=== PATIENT | female | born 1945 | race Caucasian/White ===

== ENCOUNTER 2017-10-04 13:28 | Day surgery (SDC) | payer MEDICARE, OTHER ==
[~2017-10-04 13:28] MED LIST: ALPH200C4 PO; CALC1TAB12 PO; CHOL400D2 PO; MULT1TAB84 PO; NAPR220T95 PO; OXYC1CAP PO
[2017-10-04 13:54] VITALS: BP 154/98; PULSE 68; RESP 20; TEMP 98.4; O2SAT 94
--- NOTE | 2017-10-04 16:13 | RADRPT ---
EXAM DATE/TIME: 10/04/2017 00:00 [facility] COMPARISON : No previous studies available for comparison. INDICATIONS : FRACTURE/MASS OBJECTIVE: Temperature: 98.4 Heart Rate: 68 Blood Pressure: 154/98 Respiratory: 20 Oximetry: 94 PNEUMONIA VACCINE: HISTORY OF PRESENT ILLNESS: 72-year-old female with history of metastatic breast CA and newly diagnosed pathologic compression fr acture at T12 and L1. Patient reports increasing thoracolumbar junction pain approximately 4 weeks ag o following climbing a flight of stairs with 8/10 pain which has responded to ask related or chronic pain medication dosages. She now reports pain levels of 4/10 with scheduled pain medication. Denies any radiculopathy or new bowel/urinary incontinence. PAST MEDICAL HISTORY : 1. Carcinoma, breast. 2. Arthritis. PAST SURGICAL HISTORY : 1. Tonsilectomy 2. Port 3. Breast lumpectomy SOCIAL HISTORY : Social alcohol use. Tobacco; none. MEDICATIONS: 1. Oxycodone 10 mg q.i.d. PHYSICAL EXAMINATION: Back: Moderate tenderness on firm palpation of the T12 and L1 spinous processes. There is significantly inc reased STIR signal and enhancement at T12 with mild STIR signal and enhancement at L1. IMAGING STUDIES: MRI exam dated 09/29/2017 is reviewed. This demonstrates extensive bony metastatic disease with endpl ate compression fractures of T12 and L1 vertebral bodies. No significant retropulsed fragments or jenaro dence for tumor extension into the epidural space. ASSESSMENT: 72-year-old female with painful pathologic compression fractures at T12 and L1 now requiring escalate d dose scheduled narcotic medication for pain management. No evidence for epidural tumor extension or radiculopathy. She is in excellent candidate for RF ablation and cement augmentation at these levels . PLAN: RF ablation and kyphoplasty at T12 and L1. TIME SPENT: 20 minutes Ramu Alcantar MD on October 04, 2017 at 15:59 Board Certified Radiologist. This report was verified electronically.
[2017-10-06] MEDS ORDERED: CALC1TAB12 PO (10:56)
[2017-10-06] MEDS ORDERED: MULT1TAB46 PO (10:56)
[2017-10-06] MEDS ORDERED: TAMO10TA6 PO (10:56)
== END 2017-10-04 14:55 | disposition home or self-care (01) ==
LOC: HROP 13:28 → HRIP 13:31 → HROP 14:55
PROVIDERS: ATTEND Specialist
DX: M48.54XA Collapsed vertebra, not elsewhere classified, thoracic region, initial encounter for fracture (principal); M48.56XA Collapsed vertebra, not elsewhere classified, lumbar region, initial encounter for fracture; Z85.3 Personal history of malignant neoplasm of breast

== ENCOUNTER 2017-10-15 13:46 | Day surgery (SDC) | payer MEDICARE, OTHER ==
[~2017-10-15 13:46] MED LIST changes: -ALPH200C4 PO; +MULT1TAB46 PO; -MULT1TAB84 PO; -NAPR220T95 PO; +TAMO10TA6 PO
[2017-10-15 14:12] VITALS: BP 167/81; PULSE 62; RESP 20; TEMP 97.3; O2SAT 98
--- NOTE | 2017-10-15 16:43 | RADRPT ---
EXAM DATE/TIME: 10/15/2017 00:00 [facility] COMPARISON : INDICATIONS : Status post kyphoplasty and RF ablation at T12-L1. OBJECTIVE: Temperature: 97.3 Heart Rate: 62 Blood Pressure: 167/81 Respiratory: 18 Oximetry: 98 HISTORY OF PRESENT ILLNESS: 72-year-old female with history of metastatic breast CA and painful pathologic fractures at T12-L1 st atus post RF ablation and kyphoplasty. Patient is unfortunately a difficult historian and admits to b e improved pain. However, she reports persistent pain now primarily in the proximal lumbar region. PHYSICAL EXAMINATION: General: No acute distress Back: Mild tenderness on palpation of the proximal lumbar spinous processes at multiple levels Neurological: Grossly intact ASSESSMENT: 72-year-old female with history of metastatic CA and painful pathologic fractures at T12-L1 status po st RF ablation and kyphoplasty with apparent interval improvement at those levels but new slightly mo re caudal upper lumbar pain without significant radiculopathy. Review of recent MRI examination demonstrates multilevel facet arthropathy with edema noted primarily in the L2-3 facet joints. Patient also has degenerative spondylosis with disc bulges at L L3-4 and L 4-5. Suspect patient's pain is related to facet arthropathy given lack of radiculopathy. Traditionally, re sidual pain following kyphoplasty responds well to facet injection but at the same level. Ideally, re peat MRI examination would help exclude any potential additional new pain generators. PLAN: Ideally MRI examination would be beneficial in further evaluating possible additional pain generators in the lumbar spine. Patient may benefit from L2-3 facet injections although this will need to be ve rified with fluoroscopic guided examination with patient off narcotic medication to be more precise r egarding region of pain. Patient was additionally encouraged to pursue plan radiation therapy. TIME SPENT: 20 minutes Ramu Alcantar MD on October 15, 2017 at 16:04 Board Certified Radiologist. This report was verified electronically.
== END 2017-10-15 15:00 | disposition home or self-care (01) ==
LOC: HROP 13:46 → HRIP 13:47 → HROP 15:00
PROVIDERS: ATTEND Radiology Diagnostic Radiology
DX: Z09 Encounter for follow-up examination after completed treatment for conditions other than malignant neoplasm (principal)